=== PATIENT | male | born 1950 | race Caucasian/White ===

== ENCOUNTER 2016-11-21 08:57 | Outpatient (CLI) | payer MEDICARE, OTHER ==
--- NOTE | 2016-11-21 10:38 | CT Report ---
CT CHEST WITHOUT CONTRAST: 11/21/2016 CLINICAL INDICATION: Left lung cancer, history of resection. TECHNIQUE: Axial CT images of the chest were obtained without intravenous contrast. No previous CT is available for comparison. In accordance with CT protocol optimization, one or more of the following dose reduction techniques w ere utilized for this exam: automated exposure control, adjustment of mA and/or KV based on patient size, or use of iterative reconstructive technique. FINDINGS: The heart and great vessels demonstrate atherosclerotic calcifications. No hilar or media stinal lymphadenopathy is present. Extensive emphysema is present. There has been previous resectio n of a portion of the left upper lobe. There is a 9 x 5 mm soft tissue nodule along the left major f issure superiorly (axial image 15). No effusion is seen. Mild left pleural thickening is noted post eriorly. Limited evaluation of upper abdominal structures demonstrates normal adrenal glands. [place] us structures demonstrate degenerative changes. IMPRESSION: 1. A 9 X 5 MM NODULE AT THE SUPERIOR LEFT MAJOR FISSURE, WHICH MAY REPRESENT POSTOPERATIVE CHANGE OR RECURRENCE. COMPARISON WITH PREVIOUS EXAMS WOULD BE HELPFUL. OTHERWISE, CONSIDER PET/CT FOR FURTHE R EVALUATION. 2. EMPHYSEMA. JOB #: [id number] EXT JOB #:[id number]
== END 2016-11-21 08:58 | disposition home or self-care (01) ==
LOC: DI 08:57
PROVIDERS: ATTEND Physician Assistant
DX: C34.92 Malignant neoplasm of unspecified part of left bronchus or lung (principal); J43.9 Emphysema, unspecified
CPT/HCPCS: 71250

== ENCOUNTER 2017-07-09 10:50 | Outpatient (CLI) | payer MEDICARE, OTHER ==
--- NOTE | 2017-07-09 12:01 | CT Report ---
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 COMPARISON: 11/21/2016. TECHNIQUE: Axial CT images of the chest were obtained without intravenous contrast. FINDINGS: The heart and great vessels again demonstrate atherosclerotic calcifications. No hilar or mediastinal lymphadenopathy is present. Postoperative changes in the left upper lung have decreased. Extensive emphysema is again seen. A 4 mm nodule in the lateral right middle lobe is unchanged. No new pulmonary nodule or mass lesion is appreciated. No effusion or pneumothorax is present. Limited evaluation of the upper abdominal structures demonstrates normal adrenal glands. Osseous structures demonstrate degenerative changes. IMPRESSION: DECREASE IN CONSPICUITY OF POSTOPERATIVE CHANGES IN THE LEFT APEX. NO SIGNIFICANT INTERVAL CHANGE. In accordance with CT protocol optimization, one or more of the following dose reduction techniques were utilized for this exam: automated exposure control, adjustment of mA and/or KV based on patient size, or use of iterative reconstructive technique. TD: 07/09/2017 12:01
== END 2017-07-09 10:51 | disposition home or self-care (01) ==
LOC: DI 10:50
PROVIDERS: ATTEND Physician Assistant
DX: C34.92 Malignant neoplasm of unspecified part of left bronchus or lung (principal)
CPT/HCPCS: 71250

== ENCOUNTER 2018-01-12 10:35 | Outpatient (CLI) | payer MEDICARE, OTHER ==
--- NOTE | 2018-01-12 15:12 | CT Report ---
Reason: ADENOCARCINOMA OF LEFT LUNG Procedure Date: 01/12/2018 Accession Number: [id number] / [id number] Procedure: CT - Chest W/O CPT Code: FULL RESULT: EXAM: CT CHEST EXAM DATE: 01/12/2018 10:44 AM. CLINICAL HISTORY: ADENOCARCINOMA OF LEFT LUNG. COMPARISONS: CHEST W/O 07/09/2017 11:04 AM. TECHNIQUE: Routine helical CT imaging was performed through the chest. IV contrast: None. Reconstructions: Coronal and sagittal. In accordance with CT protocol optimization, one or more of the following dose reduction techniques were utilized for this exam: automated exposure control, adjustment of mA and/or KV based on patient size, or use of iterative reconstructive technique. FINDINGS: Lungs/Pleura: Patient has undergone partial right lung resection. There are left hilar and left anterior chest surgical sutures. There is some mild associated architectural distortion. There is no evidence of recurrent or new lung mass. The lungs demonstrate emphysema. No focal central airway abnormalities are seen. There is no evidence of acute infiltrate or effusion. No pneumothorax. Mediastinum: Heart size is within normal limits. There are coronary artery and aortic valve calcifications. There are no enlarged axillary, supraclavicular, mediastinal, or hilar lymph nodes. Bones: No significant abnormalities are seen. Visualized Abdomen: The visualized portions of the upper abdominal organs demonstrate no acute abnormalities. Other: None. IMPRESSION: 1. Status post partial left lung resection. There is no evidence of residual, new, or metastatic lung cancer. 2. No acute pulmonary process. 3. There is emphysema. 4. Normal heart size. There are aortic and coronary artery calcifications. RADIA
== END 2018-01-12 10:36 | disposition home or self-care (01) ==
LOC: DI 10:35
PROVIDERS: ATTEND Physician Assistant Surgical
DX: J43.9 Emphysema, unspecified (principal); C34.92 Malignant neoplasm of unspecified part of left bronchus or lung; Z90.2 Acquired absence of lung [part of]; I70.0 Atherosclerosis of aorta; I25.10 Atherosclerotic heart disease of native coronary artery without angina pectoris
CPT/HCPCS: 71250

== ENCOUNTER 2018-01-14 10:44 | Day surgery (SDC) | payer MEDICARE, OTHER ==
[2018-01-14] MEDS ORDERED: LACTATED RINGERS 1,000 ML IV ONE (11:13)
[2018-01-14] MEDS ORDERED: fentaNYL 250 MCG/5 ML VIAL IVP ONE (13:48)
[2018-01-14] MEDS ORDERED: MIDAZOLAM 2 MG/2 ML VIAL IVP ONE (13:48)
[2018-01-14 14:57] VITALS: BP 149/46
== END 2018-01-14 10:45 | disposition home or self-care (01) ==
LOC: SDS 10:44
PROVIDERS: ATTEND Surgery
PROC: 0DBN8ZZ Excision of Sigmoid Colon, Via Natural or Artificial Opening Endoscopic (ICD-10-PCS; principal; 2018-01-14 11:45)
DX: Z12.11 Encounter for screening for malignant neoplasm of colon (principal); Z85.038 Personal history of other malignant neoplasm of large intestine; Z86.010 Personal history of colon polyps; D12.5 Benign neoplasm of sigmoid colon; K64.8 Other hemorrhoids; I10 Essential (primary) hypertension; J43.9 Emphysema, unspecified; Z90.49 Acquired absence of other specified parts of digestive tract; Z79.899 Other long term (current) drug therapy; Z79.82 Long term (current) use of aspirin; Z87.891 Personal history of nicotine dependence
CPT/HCPCS: 45385; J3010; J7120

== ENCOUNTER 2018-01-18 09:14 | Emergency (ER) | payer MEDICARE, OTHER ==
[2018-01-18 09:44] LABS: HGB - HEMOGLOBIN 12.8 g/dL (14.0-18.0); MEAN CORPUSCULAR HEMOGLOBIN 32.1 pg (27.0-31.0); MEAN CORPUSCULAR HGB CONC 34.4 g/dL (32.0-36.0); MEAN CORPUSCULAR VOLUME 93.5 fL (80.0-94.0); MEAN PLATELET VOLUME 8.4 fL (7.4-11.4); RED BLOOD COUNT 3.97 10^6/uL (4.70-6.10); RED CELL DISTRIBUTION WIDTH 12.8 % (12.0-15.0); WHITE BLOOD COUNT 6.6 x10^3/uL (4.8-10.8)
[2018-01-18 09:52] LABS: PT - PROTHROMBIN TIME 11.7 secs (9.9-12.6)
[2018-01-18 10:00] LABS: ALBUMIN 4.2 g/dL (3.2-5.5); ALBUMIN/GLOBULIN RATIO 1.3 (1.0-2.2); BILIRUBIN,TOTAL 1.1 mg/dL (0.2-1.0); CALCIUM 9.2 mg/dL (8.5-10.3); CREATININE 0.9 mg/dL (0.6-1.2); TOTAL PROTEIN 7.5 g/dL (6.7-8.2)
[2018-01-18] MEDS ORDERED: SODIUM CHLORIDE 0.9% 1,000 ML IV ONE (10:15)
[2018-01-18 13:48] VITALS: BP 150/74
--- NOTE | 2018-01-18 14:01 | ED Physician Documentation ---
PD HPI GI BLEED - Stated complaint Stated Complaint: MALE /POST OP COMPLICATION - Chief complaint Chief Complaint: Abd Pain - History obtained from History obtained from: Patient - History of Present Illness Timing - onset: How many days ago (2) Timing - details: Still present Associated symptoms: BRBPR Recently seen: Surgery (Underwent colonoscopy 4 days ago, with one polypectomy.) - Additional information Additional information: The patient is a 67-year-old male who presents with bright red blood per rectum. He first noticed it 2 days ago, then had less bleeding yesterday. This morning he had another "gush of blood." He is 4 days status post colonoscopy during which one polyp was resected. He is status post partial colectomy in 2015 for cancer, stating that 14 inches of colon was removed. He takes one full aspirin daily. He denies abdominal pain, nausea, vomiting, or fever. He does report slight lightheadedness this morning. He denies history of similar symptoms in the past. Review of Systems Constitutional: denies: Fever, Fatigue Nose: denies: Congestion Throat: denies: Sore throat Cardiac: denies: Chest pain / pressure Respiratory: denies: Dyspnea, Cough GI: reports: Bloody / black stool. denies: Abdominal Pain, Nausea, Vomiting : denies: Dysuria Skin: denies: Rash Musculoskeletal: denies: Back pain Neurologic: denies: Focal weakness, Numbness, Headache PD PAST MEDICAL HISTORY - Past Medical History Past Medical History: Yes Cardiovascular: Hypertension Respiratory: Other Endocrine/Autoimmune: None GI: Colon polyps : None HEENT: None Psych: None Musculoskeletal: None Derm: None - Past Surgical History General: Colonoscopy, EGD Ortho: Other - Present Medications Home Medications: Ambulatory Orders Medication Instructions Recorded Confirmed Aspirin 81 tab PO DAILY 01/11/18 01/11/18 Atorvastatin [Lipitor] 20 tab PO DAILY 01/11/18 01/14/18 Fexofenadine HCl [Dea Allergy] 180 tab PO DAILY 01/11/18 01/14/18 Lisinopril 10 tab PO DAILY 01/11/18 01/14/18 Multivitamin [Multiple Vitamins] 1 tab PO DAILY 01/11/18 01/14/18 Omeprazole [PriLOSEC] 20 tab PO DAILY 01/11/18 01/14/18 - Allergies Allergies/Adverse Reactions: Allergies Allergy/AdvReac Type Severity Reaction Status Date / Time No Known Drug Allergies Allergy Verified 01/18/18 09:22 - Social History Does the pt smoke?: No Smoking Status: Former smoker Does the pt drink ETOH?: Yes Does the pt have substance abuse?: No - Immunizations Immunizations are current?: Yes PD ED PE NORMAL - Vitals Vital signs reviewed: Yes (hypertensive) - General General: Alert and oriented X 3, Well developed/nourished - HEENT HEENT: Atraumatic, Moist mucous membranes, Pharynx benign - Neck Neck: No adenopathy, No JVD - Cardiac Cardiac: RRR - Respiratory Respiratory: No respiratory distress, Clear bilaterally - Abdomen Abdomen: Normal bowel sounds, Soft, Non tender - Rectal Rectal: Other (Rectal exam reveals external hemorrhoids, tight anal sphincter, and bright red blood on fingertip, which was not able to be fully inserted into the rectum due to discomfort with partial insertion.) - Back Back: No CVA TTP - Derm Derm: No rash - Extremities Extremities: No edema, No calf tenderness / cord - Neuro Neuro: Alert and oriented X 3, No motor deficit, Normal speech Results - Vitals Vitals: Oxygen O2 Source Room air - Labs Labs: Laboratory Tests 01/18/18 01/18/18 01/18/18 09:29 09:29 09:29 WBC 6.6 RBC 3.97 L Hgb 12.8 L Hct 37.1 L MCV 93.5 MCH 32.1 H MCHC 34.4 RDW 12.8 Plt Count 153 MPV 8.4 PT 11.7 INR 1.0 APTT 26.8 Sodium Potassium Chloride Carbon Dioxide Anion Gap BUN Creatinine Estimated GFR (MDRD) Glucose Calcium Total Bilirubin AST ALT Alkaline Phosphatase Total Protein Albumin Globulin Albumin/Globulin Ratio Lipase Blood Type O POSITIVE Antibody Screen NEGATIVE 01/18/18 09:29 WBC RBC Hgb Hct MCV MCH MCHC RDW Plt Count MPV PT INR APTT Sodium 134 L Potassium 4.1 Chloride 101 Carbon Dioxide 23 Anion Gap 10.0 BUN 11 Creatinine 0.9 Estimated GFR (MDRD) 84 L Glucose 121 H Calcium 9.2 Total Bilirubin 1.1 H AST 65 H ALT 52 Alkaline Phosphatase 81 Total Protein 7.5 Albumin 4.2 Globulin 3.3 Albumin/Globulin Ratio 1.3 Lipase 36 Blood Type Antibody Screen PD MEDICAL DECISION MAKING - ED course Complexity details: reviewed old records, reviewed results, re-evaluated patient, considered differential, d/w patient, d/w family, d/w software security consultant ED course: The patient's presentation is most consistent with rectal bleeding, likely from a small tear at the anal sphincter associated with colonoscopy 4 days ago. I do not think this represents hemorrhage from the polypectomy site. CBC reveals adequate hemoglobin and hematocrit of 12.8 and 37.1. The patient had a few drops of blood in the commode while in the emergency department. I discussed his condition with the general surgeon, Dr. Archer, who advises that the patient's tight anal sphincter was problematic during the colonoscopy, and that a superficial tear at the anal sphincter is quite likely. I discussed with the patient and his the likely etiology of the bleeding, advised discontinuing aspirin for the next 3 days, and discussed potentially worrisome signs or symptoms that should prompt reevaluation in the emergency department. - Sepsis Event Vital Signs: Oxygen O2 Source Room air Departure - Departure Disposition: 01 Home, Self Care Clinical Impression: Rectal bleeding, S/P colonoscopy Condition: Stable Instructions: ED Hematochezia Stable Follow-Up: Kar Archer MD [Provider Admit Priv/Credential] - ITA LAMBERT MD [Primary Care Provider] - Comments: Drink plenty of fluids. Avoid taking aspirin for Follow up with your primary physician and with your general surgeon as scheduled. Return to the emergency department if you develop increasing rectal bleeding, lightheadedness, abdominal pain, or otherwise worsening symptoms. Discharge Date/Time: 01/18/18 14:12
== END 2018-01-18 14:12 | disposition home or self-care (01) ==
LOC: ED 09:14
DX: K91.840 Postprocedural hemorrhage of a digestive system organ or structure following a digestive system procedure (principal); I10 Essential (primary) hypertension; Z87.891 Personal history of nicotine dependence; Z79.82 Long term (current) use of aspirin
CPT/HCPCS: 36415; 80053; 83690; 85027; 85610; 85730; 86850; 86900; 86901; 96360; 99283

== ENCOUNTER 2020-06-30 15:04 | Outpatient (CLI) | payer MEDICARE, OTHER ==
--- NOTE | 2020-06-30 17:33 | CT Report ---
PROCEDURE: CHEST WO INDICATIONS: LEFT LUNG CA TECHNIQUE: Noncontrast 5 mm thick sections acquired from the pulmonary apices to the posterior costophrenic angl es. 7 mm thick coronal and sagittal MIP reformats were then acquired. For radiation dose reduction, the following was used: automated exposure control, adjustment of mA and/or kV according to patient size. COMPARISON: CT chest 01/12/2018, 11/21/2016. FINDINGS: Image quality: Excellent. Lungs and pleura: Partial left upper lobe lobectomy is similar the prior CTs. Right middle lobe pulm onary nodule measuring 0.4 cm, (4/240), unchanged since at least 11/21/2016. No mass. Moderate emphysem atous change. Bibasal atelectasis. No pleural effusions or pneumothorax. Central and peripheral air ways are patent and normal in caliber. Mediastinum: Heart size is normal. Coronary artery calcifications. No pericardial effusion. No medi astinal adenopathy by size criteria. Thoracic aorta and central pulmonary arteries are normal in siz e. Extensive calcified plaque at the aortic arch. Esophagus is normal in caliber. No hiatal hernia. Bones and chest wall: No suspicious bony lesions. No vertebral body compression fractures. Similar Schmorl's nodules. No axillary or supraclavicular adenopathy by size criteria. Thyroid is unremarkab le. Abdomen: Hepatic flexure colonic anastomosis. Circumferential calcified abdominal aortic plaque. Visu alized upper abdominal solid organs and bowel loops appear normal in the absence of contrast. IMPRESSION: 1. No recurrent lung mass or significant pulmonary nodules. Stable appearance of the left upper lobe partial lobectomy. 2. No acute airspace opacity. Reviewed by: John Healy MD on 06/30/2020 5:32 PM PST Approved by: John Healy MD on 06/30/2020 5:32 PM PST Station ID: [id number]
== END 2020-06-30 15:05 | disposition home or self-care (01) ==
LOC: DI 15:04
PROVIDERS: ATTEND Nurse Practitioner
DX: C34.92 Malignant neoplasm of unspecified part of left bronchus or lung (principal); Z08 Encounter for follow-up examination after completed treatment for malignant neoplasm; Z85.118 Personal history of other malignant neoplasm of bronchus and lung

== ENCOUNTER 2021-06-24 10:33 | Outpatient (CLI) | payer MEDICARE, OTHER ==
--- NOTE | 2021-06-24 14:03 | CT Report ---
PROCEDURE: CHEST WO INDICATIONS: ADENOCARCINOMA LEFT LUNG TECHNIQUE: Noncontrast 1mm axial images were acquired from the pulmonary apices to the posterior costophrenic an gles. Axial 5 mm soft tissue kernel reconstructions were performed as well as 8 mm axial MIP and cor onal and sagittal 5 mm reformations. For radiation dose reduction, the following was used: automate d exposure control, adjustment of mA and/or kV according to patient size. COMPARISON: CT chest 06/30/2020, 11/21/2016. FINDINGS: Image quality: Excellent. Lungs and pleura: Moderate emphysematous change. The left upper lobe partial lobectomy. There is sim ilar scarring and postoperative change at the major fissure. There is mild bibasal atelectasis. Right middle lobe pulmonary nodule measuring 0.4 cm, (4/230), unchanged since 2017. No acute air space opa cities. No pleural effusions or pneumothorax. Central and peripheral airways are patent and normal in caliber. Mediastinum: Heart size is normal. Coronary artery calcifications. No pericardial effusion. No medi astinal adenopathy by size criteria. Thoracic aorta and central pulmonary arteries are normal in siz e. Circumferential calcified atherosclerotic plaque. Esophagus is normal in caliber. No hiatal herni a. Bones and chest wall: No suspicious bony lesions. Suspect prior left seventh rib fracture. No verteb ral body compression fractures. No axillary or supraclavicular adenopathy by size criteria. The thy roid is normal in size and there are no incidental findings. Abdomen: Visualized upper abdominal solid organs and bowel loops appear normal in the absence of con trast. IMPRESSION: 1. No recurrent lung mass. Stable appearance of the left upper lobe partial lobectomy. 2. No significant pulmonary nodules. 3. No acute airspace opacity. Reviewed by: John Healy MD on 06/24/2021 2:02 PM PST Approved by: John Healy MD on 06/24/2021 2:02 PM PST Station ID: [id number]
== END 2021-06-24 10:34 | disposition home or self-care (01) ==
LOC: DI 10:33
PROVIDERS: ATTEND Surgery
DX: C34.92 Malignant neoplasm of unspecified part of left bronchus or lung (principal); Z90.2 Acquired absence of lung [part of]

== ENCOUNTER 2022-02-22 09:46 | Emergency (ER) | payer MEDICARE, OTHER ==
[2022-02-22 10:00] VITALS: BP 181/91
--- NOTE | 2022-02-22 11:28 | ED Physician Documentation ---
History of Present Illness - Stated complaint Stated Complaint: LT LEG PX - Chief complaint Chief Complaint: Ext Problem - Additonal information Additional information: 71-year-old male presents emergency department for evaluation of 4 days left lower back pain with radiation down to the toes and the leg. He feels a burning sensation in the leg and a tightness in the thigh. There is no swelling. Has had no fevers. No saddle anesthesia. No loss of bowel or bladder function. He does have a history of lung cancer. He did have an MRI of his lumbar spine due to hip pain about 1 month ago that showed some degenerative disc disease between L3 and L4. Patient's had no falls and no fevers. Patient has taken Tylenol and ibuprofen without relief of the symptoms. He reports the pain is worse especially when laying flat. He has had difficulty sleeping Review of Systems Constitutional: denies: Fever, Chills Nose: reports: Reviewed and negative Cardiac: reports: Reviewed and negative Respiratory: reports: Reviewed and negative GI: reports: Reviewed and negative Musculoskeletal: reports: Back pain, Extremity pain Neurologic: reports: Reviewed and negative Psychiatric: reports: Reviewed and negative PD PAST MEDICAL HISTORY - Past Medical History Cardiovascular: Hypertension Respiratory: Other Endocrine/Autoimmune: None GI: Colon polyps : None HEENT: None Psych: None Musculoskeletal: None Derm: None - Past Surgical History General: Colonoscopy, EGD Ortho: Other - Present Medications Home Medications: Ambulatory Orders Medication Instructions Recorded Confirmed Aspirin 81 tab PO DAILY 01/11/18 01/11/18 Atorvastatin [Lipitor] 20 tab PO DAILY 01/11/18 01/14/18 Fexofenadine HCl [Dea Allergy] 180 tab PO DAILY 01/11/18 01/14/18 Multivitamin [Multiple Vitamins] 1 tab PO DAILY 01/11/18 01/14/18 Omeprazole [PriLOSEC] 20 tab PO DAILY 01/11/18 01/14/18 lisinopriL [Lisinopril] 10 tab PO DAILY 01/11/18 01/14/18 HYDROcod/ACETAM 5/325 [[facility] 5/325] 1 - 2 tablet PO Q6H PRN #10 tablet 02/22/22 methylPREDNISolone [Medrol Dose 1 each PO .PACKAGEINSTRUCTIONS 6 02/22/22 Pack] Days #1 each - Allergies Allergies/Adverse Reactions: Allergies Allergy/AdvReac Type Severity Reaction Status Date / Time No Known Drug Allergies Allergy Verified 01/18/18 09:22 - Social History Does the pt smoke?: No Smoking Status: Former smoker Does the pt drink ETOH?: Yes Does the pt have substance abuse?: No - Immunizations Immunizations are current?: Yes PD ED PE EXPANDED - General General: Alert, No acute distress, Well developed/nourished - Back Back: Straight leg raise + L. No: Vertebral tenderness (No vertebral tenderness elicited with palpation of the lower thoracic and lumbar spine. Some mild tenderness near the SI joint. Patient has a positive straight leg exam on the left. Negative on the right. Motor strength is preserved 5 of 5. Some paresthesias of the lateral thigh), Soft tissue tenderness Results - Vitals Vitals: Vital Signs - 24 hr 02/22/22 09:55 Temperature 36.6 C Heart Rate 94 Respiratory 16 Rate Blood Pressure 181/91 H O2 Saturation 99 Oxygen O2 Source Room air PD MEDICAL DECISION MAKING - ED course Complexity details: reviewed old records, considered differential, d/w patient, d/w family ED course: 71-year-old male presents emergency department for evaluation of 4 days left low back pain with radiation to the lower leg. No saddle anesthesia loss of bowel or bladder function. He does have a history of cancer. He did have a lumbar MRI completed in early December for right hip pain. At that time it showed some L3-4 degenerative disc disease. Though he does have a history of cancer the presentation of his symptoms is very suggestive of acute sciatica. In addition a rather recent MRI does not show anything to suggest lytic lesions of the spine. As he is trialed conservative therapy with Tylenol and ibuprofen at home without relief I will start him on a course of methylprednisolone. A limited prescription of hydrocodone is also sent to the preferred pharmacy. Patient is encouraged to follow closely with his primary care doctor. He has enjoyed and benefited from physical therapy in the past and I think he would benefit again from another course of physical therapy for what I believed to be sciatica. We did have discharged the patient in stable condition and emergent return precautions for worsening symptoms were discussed. I am prescribing a short course of short-acting opioid pain medication for this patient. I have reviewed the patients IT ADMINISTRATOR and no concerning findings were noted. I have discussed that the opioids are for short term therapy only, and will not be refilled from the ED. Departure - Departure Disposition: Home, Self Care Clinical Impression: Left-sided low back pain with sciatica Qualifiers: Chronicity: acute Sciatica laterality: sciatica of left side Qualified Code(s): M54.42 - Lumbago with sciatica, left side Condition: Stable Record reviewed to determine appropriate education?: Yes Instructions: ED Sciatica Prescriptions: methylPREDNISolone [Medrol Dose Pack] 1 each PO .PACKAGEINSTRUCTIONS 6 Days #1 each HYDROcod/ACETAM 5/325 [[facility] 5/325] 1 - 2 tablet PO Q6H PRN #10 tablet PRN Reason: Pain Comments: Alok came to the emergency department because you have had 4 to 5 days of left- sided low back pain that radiates down to your toes. As we discussed at the bedside your history and exam is most suggestive of acute sciatica. This is inflammation of the large nerve that runs down the leg. Because the ibuprofen and Tylenol at home have not helped I would like to start you on a course of steroids. [place] Medrol [place] I am also sending a very limited prescription for hydrocodone to be used for severe pain only. You can continue to take the Tylenol but while you are on the steroids do not take the ibuprofen. Please follow close with your primary care doctor. I think you would benefit again from a referral to physical therapy as it seemed to help your hip a great deal.
== END 2022-02-22 12:24 | disposition home or self-care (01) ==
LOC: ED 09:46
DX: M54.42 Lumbago with sciatica, left side (principal); M51.36 Other intervertebral disc degeneration, lumbar region; I10 Essential (primary) hypertension; Z87.891 Personal history of nicotine dependence
CPT/HCPCS: 99282

== ENCOUNTER 2022-03-26 12:14 | Emergency (ER) | payer MEDICARE, OTHER ==
[2022-03-26 13:15] VITALS: BP 176/83
--- NOTE | 2022-03-26 13:54 | XRAY Report ---
PROCEDURE: Finger(s) LT INDICATIONS: Trauma TECHNIQUE: PA hand, 3 views of the ring finger acquired. COMPARISON: None. FINDINGS: Bones: There is a minimally displaced oblique fracture of the fourth proximal phalangeal shaft. No santos spicious bony lesions. Soft tissues: No suspicious soft tissue calcifications. IMPRESSION: Minimally displaced oblique fracture of the fourth proximal phalangeal shaft. Reviewed by: Clay Gonzales MD on 03/26/2022 1:53 PM PST Approved by: Clay Gonzales MD on 03/26/2022 1:53 PM PST Station ID: [id number]
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
== END 2022-03-26 15:18 | disposition home or self-care (01) ==
LOC: ED 12:14
DX: S62.615A Displaced fracture of proximal phalanx of left ring finger, initial encounter for closed fracture (principal); W18.30XA Fall on same level, unspecified, initial encounter; Z87.891 Personal history of nicotine dependence
CPT/HCPCS: 99281; 99283

== ENCOUNTER → 2022-03-26 | Outpatient (CLI) | payer MEDICARE, OTHER | END | disposition short-term general hospital (02) | LOC: EMS 19:08 | DX: S49.92XA Unspecified injury of left shoulder and upper arm, initial encounter (principal); W17.89XA Other fall from one level to another, initial encounter; Y92.008 Other place in unspecified non-institutional (private) residence as the place of occurrence of the external cause | CPT/HCPCS: A0425; A0429 ==

== ENCOUNTER 2023-02-22 10:50 | Outpatient (CLI) | payer MEDICARE, OTHER | END 2023-02-22 10:51 | disposition EMS.NT | LOC: EMS 10:50 | DX: S69.92XA Unspecified injury of left wrist, hand and finger(s), initial encounter (principal); Y04.2XXA Assault by strike against or bumped into by another person, initial encounter; Y04.1XXA Assault by human bite, initial encounter; Y92.019 Unspecified place in single-family (private) house as the place of occurrence of the external cause ==

== ENCOUNTER 2023-02-22 12:53 | Emergency (ER) | payer MEDICARE, OTHER ==
[2023-02-22] MEDS ORDERED: TETANUS/DIPHTHERIA/PERTUSSIS 0.5 ML SYRINGE IM ONE (13:02)
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
--- NOTE | 2023-02-22 13:50 | XRAY Report ---
PROCEDURE: Hand 3 View LT INDICATIONS: hand inj TECHNIQUE: 3 views of the hand(s) acquired. COMPARISON: None. FINDINGS: Bones: Acute oblique fracture through distal shaft of third proximal phalanx is seen with medial and dorsal displacement at fracture site. No other fracture or dislocation is seen. 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 No suspicious bony lesions. Soft tissues: No suspicious soft tissue calcifications or masses. IMPRESSION: Acute displaced fracture involving fourth proximal phalangeal shaft as above. Reviewed by: Johnny Yuan MD on 02/22/2023 1:49 PM PDT Approved by: Johnny Yuan MD on 02/22/2023 1:49 PM PDT Station ID: [id number]
[2023-02-22 14:06] VITALS: BP 189/90; O2SAT 98
== END 2023-02-22 13:58 | disposition home or self-care (01) ==
LOC: ED 12:53
DX: S62.615A Displaced fracture of proximal phalanx of left ring finger, initial encounter for closed fracture (principal); Y29.XXXA Contact with blunt object, undetermined intent, initial encounter; I10 Essential (primary) hypertension; Z79.82 Long term (current) use of aspirin; Z79.899 Other long term (current) drug therapy; Z87.891 Personal history of nicotine dependence; Z23 Encounter for immunization
CPT/HCPCS: 26755; 90471; 99283

== ENCOUNTER 2023-02-27 08:00 | Outpatient (CLI) | payer MEDICARE, OTHER ==
--- NOTE | 2023-02-27 20:19 | XRAY Report ---
PROCEDURE: Finger(s) LT INDICATIONS: LEFT FINGER FRACTURE TECHNIQUE: AP hand, 3 views of the fourth finger(s) acquired. COMPARISON: Left hand radiograph on February 22, 2023. Left finger radiograph on March 26, 2022. FINDINGS: Bones: Oblique, impacted fracture of the fourth proximal phalanx with intra-articular extension into the ulnar aspect of the PIP joint. There is half shaft width volar and radial displacement of the di stal fracture fragment which appears similar to the prior exam. No new fracture. Mild degenerative ch anges throughout the hand. No suspicious bony lesions. Soft tissues: No suspicious soft tissue calcifications or masses. Marked soft tissue swelling of t he fourth digit. No radiopaque foreign body. IMPRESSION: Oblique, impacted, displaced fracture of the fourth proximal phalanx with intra-articular extension i nto the PIP joint appears similar to the prior exam. Stable alignment. Reviewed by: Tye Granados MD on 02/27/2023 8:18 PM PST Approved by: Tye Granados MD on 02/27/2023 8:18 PM PST Station ID: [id number]
== END 2023-02-27 23:59 | disposition home or self-care (01) ==
LOC: DI.WOS 08:00
PROVIDERS: ATTEND Orthopaedic Surgery
DX: S62.615A Displaced fracture of proximal phalanx of left ring finger, initial encounter for closed fracture (principal)

== ENCOUNTER 2023-02-28 09:05 | Day surgery (SDC) | payer MEDICARE, OTHER ==
[~2023-02-28 09:05] MED LIST: ACETAMINOPHEN 500 MG TABLET PO ONE; CELECOXIB 100 MG CAPSULE PO ONE; ceFAZolin 2 GM VIAL ONE
[2023-02-28] MEDS ORDERED: LACTATED RINGERS 1,000 ML IV ONE ×2 (09:35→12:19)
--- NOTE | 2023-02-28 10:25 | ANESTHESIA ---
Pre-Anesthesia VS, & Labs - Diagnosis L 4t finger fracture - Procedure perc pinning, closed reduction L 4th finger Vital Signs: Temp Pulse Resp BP Pulse Ox O2 Flow Rate 36.5 C 93 16 165/91 H 93 02/28/23 09:35 02/28/23 09:35 02/28/23 09:35 02/28/23 09:35 02/28/23 09:35 Height: 5 ft 6 in Weight (kg): 78.7 kg Body Mass Index: 28.0 BMI Classification: Overweight - NPO >8 hours Home Medications and Allergies Home Medications: Ambulatory Orders Acetaminophen [Tylenol] 975 mg PO Q6H PRN 02/27/23 Ibuprofen [Motrin] 600 mg PO Q6H PRN 02/27/23 Vit A/Vit C/Vit E/Zinc/Copper [Preservision Areds Softgel] 1 each PO BID 02/27/23 Atorvastatin [Lipitor] 20 tab PO QPM 01/11/18 Omeprazole [PriLOSEC] 20 tab PO DAILY 01/11/18 lisinopriL [Lisinopril] 20 tab PO DAILY 01/11/18 Acetaminophen [Tylenol] 975 mg PO Q6H PRN 02/27/23 Ibuprofen [Motrin] 600 mg PO Q6H PRN 02/27/23 Vit A/Vit C/Vit E/Zinc/Copper [Preservision Areds Softgel] 1 each PO BID 02/27/23 Allergies/Adverse Reactions: Allergies Allergy/AdvReac Type Severity Reaction Status Date / Time No Known Drug Allergies Allergy Verified 02/28/23 09:44 Anes History & Medical History - Anesthetic History Anesthesia Complications: reports: No previous complications Family history of Anesthesia Complications: Denies Family history of Malignant Hyperthermia: Denies - Medical History Cardiovascular: reports: Hypertension, High cholesterol, Other Pulmonary: reports: Other (KAVON removed) Gastrointestinal: reports: GERD, Colon polyps, Other Urinary: reports: None Musculoskeletal: reports: None Endocrine/Autoimmune: reports: None Skin: reports: None Smoking Status: Former smoker Psychosocial: reports: Alcohol History of Cancer?: Yes - Surgical History General: reports: Bowel surgery, Colonoscopy, EGD Cardiothoracic: reports: Lobectomy, Other Orthopedic: reports: Other Exam General: Alert, Oriented x3, Cooperative Dental: Dentures full Upper, Dentures full Lower, Other (edentulous) Mouth Openin Fingerbreadth Neck Mobility: Normal Mallampati classification: I Thyromental Distance: 4-6 cm Respiratory: Lungs clear Cardiovascular: Regular rate Plan Anesthesia Type: General Consent for Procedure(s) Verified and Reviewed: Yes Code Status: Attempt Resuscitation ASA classification: 3-Severe systemic disease Is this case an emergency?: No
[2023-02-28] MEDS ORDERED: BUPIVACAINE 0.5% PF 10 ML VIAL ONE (10:30)
[2023-02-28] MEDS ORDERED: PROPOFOL 500 MG/50 ML 500 MG/50 ML VIAL ONE (10:41)
[2023-02-28] MEDS ORDERED: fentaNYL 100 MCG/2 ML VIAL ONE (10:41)
[2023-02-28] MEDS ORDERED: LIDOCAINE-MPF 1% 30 ML VIAL ONE (10:42)
[2023-02-28] MEDS ORDERED: KETAMINE 200 MG/20 ML VIAL ONE (11:24)
[2023-02-28] MEDS ORDERED: PROPOFOL 200 MG/20 ML VIAL IVP ONE ×2 (11:35→11:56)
[2023-02-28] MEDS ORDERED: BUPIVACAINE 0.5% PF 10 ML VIAL IM ONE ×2 (11:35)
[2023-02-28] MEDS ORDERED: LIDOCAINE 1% 50 ML MDV IM ONE ×2 (11:35)
[2023-02-28] MEDS ORDERED: MIDAZOLAM 2 MG/2 ML VIAL ONE (11:36)
[2023-02-28] MEDS ORDERED: oxyCODONE 5 MG TABLET PO PRN (12:16)
[2023-02-28] MEDS ORDERED: CELECOXIB 100 MG CAPSULE PO PRN (12:16)
[2023-02-28] MEDS ORDERED: ACETAMINOPHEN 500 MG TABLET PO PRN (12:16)
[2023-02-28] MEDS ORDERED: ONDANSETRON 4 MG/2 ML VIAL IVP PRN (12:16)
--- NOTE | 2023-02-28 12:18 | OPERATIVE REPORT ---
Operative Report - General Procedure Date: 02/28/23 Planned Procedure: Closed reduction percutaneous pinning proximal phalanx left fourth finger Pre-Op Diagnosis: Displaced proximal phalanx shaft fracture left fourth finger with history o Procedure Performed: Closed reduction, percutaneous K wire fixation proximal phalanx left fourth finger Post Op Diagnosis: Same as preoperative diagnosis - Procedure Note Primary Surgeon: Samuel Knott MD Secondary Surgeon: Papo Jon MD; Suzanne VANEGAS Anesthesia Provider: Odalis Granado CRNA Anesthesia Technique: Local, Moderate sedation Estimated Blood Loss (mL): 2 Indications: This is a 72-year-old man with a history of a fall and isolated injury to his ring finger. He had pain and deformity after the fall that occurred from a standing height, ground-level fall. He has had previous fractures and deformity to his ring finger. He had a crossover deformity on exam, swelling and tenderness to the proximal phalanx. The ring finger was crossing over the fifth finger. His x-rays showed a displaced short oblique fracture involving the distal shaft of the fourth finger. An informed consent was obtained for closed reduction, percutaneous K wire fixation of the ring finger proximal phalanx [facility] ture Findings: Closed, displaced proximal phalanx shaft fracture left fourth finger with previous history of deformity on past x-rays and clinical deformity of adjacent fingers, swan-neck Complications: None - Other Other Information/Narrative: The patient was brought to the operating room table and placed in the supine position with the left arm on an arm extension table. The left upper extremity was prepped and draped in sterile manner in the usual fashion. The C-arm image intensifier was utilized intermittently during fracture reduction and insertion of K wires, biplanar imaging was achieved. A timeout procedure was performed by the entire operating room team and all were in agreement. Longitudinal traction was performed with countertraction through the hand. Traction was applied using a towel clamp through the middle phalanx. There was not much mobility to the fracture site in terms of being able to gain length or correct angulation on the lateral view. The angulation on the AP view could be improved. An attempt to squeeze the fracture on the AP view into better alignment with a towel clamp was performed. This was in conjunction with distal traction. 0.045 K wire was inserted from the distal end of the proximal phalanx on the ulnar side and run through the distal fragment into the proximal. There is still offset at the fracture site on both AP and lateral views but the fracture seems to Have better stability and alignment. A second K wire was inserted parallel to the first and the third K wire was inserted antegrade from the ulnar aspect of the proximal phalanx. This allowed for 3 K wire fixation, 1 inserted proximally and 2 distally. There is no clinical deformity in terms of the crossover deformity that was present. The fractures seem somewhat stiff, presumably from previous fractures that he is encountered to the ring finger. The K wires were cut external to the skin and capped with sterile ball. A short arm volar fiberglass padded splint was applied, blocking metacarpal phalangeal joint motion but allowing proximal and distal interphalangeal joint motion. He tolerated the procedure well. A physician statistical assistant was medically necessary to help with prepping and draping, positioning, protection of vital structures, assistance during the procedure including wound closure, dressing and/or splinting.
[2023-02-28 12:26] VITALS: O2SAT 100
--- NOTE | 2023-02-28 12:34 | ANESTHESIA POST OP EVALUATION ---
Anesthesia Post Eval - Post Anesthesia Eval Vitals: Last Vital Signs Temp 36.1 C L 02/28/23 12:22 Pulse 91 02/28/23 12:28 Resp 14 02/28/23 12:28 BP 182/96 H 02/28/23 12:28 Pulse Ox 100 02/28/23 12:28 O2 Flow Rate CV Function Including HR & BP: Stable Pain Control: Satisfactory Nausea & Vomiting: Negative Mental Status: Baseline Respiratory Status: Airway Patent Hydration Status: Satisfactory Anesthesia Complications: None
[2023-02-28 12:45] VITALS: BP 162/90
[2023-02-28] MEDS ORDERED: oxyCODONE 5 MG TABLET ONE (12:45)
--- NOTE | 2023-03-01 16:08 | XRAY Report ---
PROCEDURE: OR C-Arm Procedure INDICATIONS: DISPLACED FRACTURE LEFT 4TH PROXIMAL PHALANGEAL FI FLUORO TIME: 0:48 MIN TECHNIQUE: 2 intraoperative images were acquired. COMPARISON: X-ray finger 02/27/2023 FINDINGS: Intraoperative images demonstrate fixation of the fourth proximal phalanx. There is relatively good a natomic alignment. Hardware is intact. IMPRESSION: Fourth digit ORIF. Reviewed by: Diamond Norris MD on 03/01/2023 4:07 PM PST Approved by: Diamond Norris MD on 03/01/2023 4:07 PM [facility] Station ID: [id number]
== END 2023-02-28 09:06 | disposition home or self-care (01) ==
LOC: SDS 09:05
PROVIDERS: ATTEND Orthopaedic Surgery
DX: S62.615A Displaced fracture of proximal phalanx of left ring finger, initial encounter for closed fracture (principal); I10 Essential (primary) hypertension; J43.9 Emphysema, unspecified; Z87.891 Personal history of nicotine dependence
CPT/HCPCS: 26727; A9270; J3490; J7120

== ENCOUNTER 2023-04-03 08:00 | Outpatient (CLI) | payer MEDICARE, OTHER ==
--- NOTE | 2023-04-03 21:13 | XRAY Report ---
PROCEDURE: Finger(s) RT INDICATIONS: RIGHT 4TH FINGER FRACTURE TECHNIQUE: 3 views of the fourth finger COMPARISON: 02/27/2023 FINDINGS: Bones: Oblique fracture through the fourth proximal phalanx is transfixed by 2 K wires. There is impr jj alignment of the fracture fragments, however, persistent medial displacement of the distal fract ure fragment noted with foreshortening Soft tissues: No suspicious soft tissue calcifications. IMPRESSION: Displaced oblique fourth proximal phalangeal fracture with external fixation Reviewed by: Ramez Chandra MD on 04/03/2023 8:11 PM [facility] Approved by: Ramez Chandra MD on 04/03/2023 8:11 PM [facility] Station ID: [id number]
== END 2023-04-03 23:59 | disposition home or self-care (01) ==
LOC: DI.WOS 08:00
PROVIDERS: ATTEND Orthopaedic Surgery
DX: S62.614D Displaced fracture of proximal phalanx of right ring finger, subsequent encounter for fracture with routine healing (principal)

== ENCOUNTER 2023-05-08 08:00 | Outpatient (CLI) | payer MEDICARE, OTHER ==
--- NOTE | 2023-05-08 17:50 | XRAY Report ---
PROCEDURE: Finger(s) LT INDICATIONS: LEFT 4TH FINGER FRACTURE TECHNIQUE: AP hand, 2 views of the left fourth finger(s) acquired. COMPARISON: None. FINDINGS: Bones: Displaced proximal left fourth phalangeal fracture is redemonstrated. When compared with the study dated 04/03/2023, the fracture fragments are in similar anatomic alignment. There is likely raman y early callus now visualized. Soft tissues: No suspicious soft tissue calcifications or masses. IMPRESSION: Stable displaced fourth proximal phalangeal fracture with findings suggesting early callus. Reviewed by: Nel Yates MD on 05/08/2023 5:49 PM PST Approved by: eNl Yates MD on 05/08/2023 5:49 PM [facility] Station ID: [id number]
== END 2023-05-08 23:59 | disposition home or self-care (01) ==
LOC: DI.WOS 08:00
PROVIDERS: ATTEND Orthopaedic Surgery
DX: S62.615A Displaced fracture of proximal phalanx of left ring finger, initial encounter for closed fracture (principal); S62.615D Displaced fracture of proximal phalanx of left ring finger, subsequent encounter for fracture with routine healing

== ENCOUNTER 2025-01-27 07:08 | Observation (INO) ==
[2025-01-27 07:58] LABS: HCT - HEMATOCRIT 40.9 % (42.0-52.0); HGB - HEMOGLOBIN 13.9 g/dL (14.0-18.0); MEAN PLATELET VOLUME 9.4 fL (7.4-11.4); NRBC ABSOLUTE COUNT (AUTO) 0.00 x10^3/uL; NUCLEATED RED BLOOD CELLS AUTO 0.0 /100WBC; PLT - PLATELET COUNT 134 10^3/uL (130-450); RED CELL DISTRIBUTION WIDTH 12.2 % (12.0-15.0)
--- NOTE | 2025-01-27 08:11 | ED Physician Documentation ---
History of Present Illness Stated complaint Stated Complaint: SOA, BACK PX Chief complaint Chief Complaint: Back Pain Additonal information Additional information: Patient is a 74-year-old male with history of hypertension, previous instances of colon cancer as well as lung cancer requiring lobectomy on the left side, presenting with multiple complaints. Patient states that last week he developed bilateral lumbar back pain which is abnormal for him. He noticed this Sunday morning, 4 days ago after waking up. Prior to this he had been storing things in his camper, and thinks that moving around heavy objects may have caused the pain. However after this over the next 3 days, he developed new chest tightness and shortness of breath. He is stating that he feels very short of breath with minimal exertion and ambulation, but at rest feels okay. This is abnormal for him. Denies previous history of similar symptoms. He does have a history of lower extremity stenting, due to peripheral vascular disease, but is currently not on aspirin or any blood thinners. He denies any fever, chills, nausea, vomiting. Denies recent upper respiratory infectious symptoms. He denies flank pain, or any changes to urination. He does endorse decreased bowel movements over the last couple days but is passing flatus. He does not wear oxygen at baseline. Denies previous history of blood clot or pulmonary embolism. Review of Systems Status of ROS: [facility] Med[facility]All[facility] Home Medications Ambulatory Orders Medication Instructions Recorded Confirmed omeprazole 20 mg capsule,delayed 20 mg PO DAILY 01/27/25 release cyanocobalamin (vitamin B-12) 500 500 mcg PO DAILY 11/1401/27/25 mcg tablet (B-12 DOTS) folic acid 1 mg tablet 1 mg PO DAILY 01/27/2501/27 lisinopril 20 mg tablet 20 mg PO QPM 01/27/25 vit C 250 mg-vit E 90 mg-zinc 40 1 tab PO BID 01/27/25 01/27/25 mg-copper 1 [id number] capsule ([facility] AREDS-2) Allergies Allergies Allergy/AdvReac Type Severity Reaction Status Date / Time No Known Drug Allergies Allergy Verified 02/28/23 09:44 [facility] Active Problems All Active Problems (Updated 01/27/25 @ 16:04 by Sacha Mathis) Acute back pain (Acute) Acute hypoxic respiratory failure (Acute) Heart failure (Chronic) Medical History Medical History (Updated 01/27/25 @ 16:04 by Sacha Mathis) Back pain Hypertension Macular degeneration Surgical History Surgical History H/O shoulder surgery S/P insertion of iliac artery stent History of colon resection Status post partial lobectomy of lung Social History Social History (Updated 01/27/25 @ 08:34 by Alison Estrada RN) Smoking Status: Former smoker If you are a former smoker, when did you quit? (Date/Year): May 2016 Number of Years Smoked: 50 Do you dip or chew tobacco?: No Do you vape?: No Smoking Status Details: 2016 Living arrangement: At home Marital Status: Living Condition: With spouse/s.o. and Other Living Condition Notes: 20# [employer] [facility] Support Person: Yes Has a Durable Power of Private Client Advisor for Health Care?: Yes Name / Relationship: La- DPOA on file?: No Has Health Care Directive?: No Health Care Directive on file?: No DPOA / Health Care Directive - Additional Notes: [place] Activity: Walking Level: Independent Home Mobility Equipment: Cane Do you feel safe in your home environment?: Yes History of physical, verbal, emotional, or financial abuse?: No ETOH Use: Beer Frequency: Daily Retired: Yes Known occupational exposures/hazards (Current/Previous): paint on vehicles Service: Yes Dates of Service: February 20- February 21, 1993 Are you following a diet prescribed by a doctor: No Are you following a special diet: No Exam Exam Vital Signs: Vital Signs x48h Pulse Resp BP Pulse Ox 01/27/25 13:48 88 22 174/86 H 95 01/27/25 13:48 93 01/27/25 13:46 88 20 93 01/27/25 13:19 85 21 172/90 H 94 01/27/25 12:19 91 27 H 159/83 H 93 Constitutional normal general appearance Resting comfortably, no acute distress. Nontoxic, no diaphoresis, no pallor. HENMT normocephalic Eyes PERRL, conjunctivae normal and no scleral icterus Neck/C-Spine cervical spine nontender, cervical full ROM noted and no meningeal signs Respiratory Mildly diminished breath sounds bilaterally, no wheeze, no rhonchi, no rales. Saturating at 94% on room air at rest. No accessory muscle use. Cardiovascular normal heart rate noted, regular rhythm noted, no murmur and peripheral pulses 2+ throughout Normal S1S2, no murmurs. Radial pulses 2+, symmetric. Gastrointestinal abdomen soft to palpation, nontender to palpation, nontender to percussion, nondistended and normoactive bowel sounds Genitourinary no CVA tenderness Back/Pelvis no thoracic spine tenderness, no lumbar spine tenderness, thoracic spine ROM normal and lumbar spine ROM normal No stepoffs, no deformities, Nontender to palpation throughout lumbar spine and thoracic spine Extremities normal to inspection, no tenderness and full ROM Neurology manager talent acquisition II-XII intact and no fasciculations noted Psychiatry mental status grossly normal and oriented x3 Skin skin color normal Results Vitals Vitals: Vital Signs - 24 hr 01/27/25 07:25 01/27/25 07:29 01/27/25 07:33 Temperature 36.8 C 36.8 C Temperature Source Oral Oral Pulse Rate 95 95 88 Respiratory Rate 18 18 18 Blood Pressure 193/93 H 193/93 H 169/85 H O2 Saturation 95 95 93 O2 Source Room air Room air Room air Pain Intensity 7 7 7 01/27/25 08:00 01/27/25 08:51 01/27/25 08:51 Temperature Temperature Source Pulse Rate 86 94 93 Respiratory Rate 14 21 18 Blood Pressure 179/95 H O2 Saturation 93 92 94 O2 Source Pain Intensity 01/27/25 09:32 01/27/25 09:32 01/27/25 09:32 Temperature Temperature Source Pulse Rate 90 89 88 Respiratory Rate 18 22 17 Blood Pressure 177/83 H 177/83 H 177/83 H O2 Saturation 93 93 94 O2 Source Pain Intensity 01/27/25 11:19 01/27/25 11:19 01/27/25 11:19 Temperature Temperature Source Pulse Rate 87 84 84 Respiratory Rate 18 20 19 Blood Pressure 176/87 H 176/87 H 176/87 H O2 Saturation 91 L 93 92 O2 Source Pain Intensity 01/27/25 12:19 01/27/25 13:19 01/27/25 13:46 Temperature Temperature Source Pulse Rate 91 85 88 Respiratory Rate 27 H 21 20 Blood Pressure 159/83 H 172/90 H O2 Saturation 93 94 93 O2 Source Pain Intensity 01/27/25 13:48 01/27/25 13:48 Temperature Temperature Source Pulse Rate 88 Respiratory Rate 22 Blood Pressure 174/86 H O2 Saturation 93 95 O2 Source Pain Intensity Oxygen O2 Source Room air Labs Labs: Laboratory Tests 01/27/25 07:49 WBC 8.4 RBC 4.20 L Hgb 13.9 L Hct 40.9 L MCV 97.4 H MCH 33.1 H MCHC 34.0 RDW 12.2 Plt Count 134 MPV 9.4 Neut # (Auto) 6.4 Lymph # (Auto) 0.7 L [place] # (Auto) 1.2 H Eos # (Auto) 0.0 Baso # (Auto) 0.1 Absolute Nucleated RBC 0.00 Nucleated RBC % 0.0 Sodium 128 L Potassium 3.9 Chloride 93 L Carbon Dioxide 25 Anion Gap 10.0 BUN 8 Creatinine 0.8 Estimated GFR (MDRD) 95 Glucose 111 H Calcium 9.3 Total Bilirubin 1.7 H AST 21 ALT 17 Alkaline Phosphatase 61 Troponin I High Sens 16.2 B-Natriuretic Peptide 1085 H Total Protein 7.6 Albumin 4.4 Globulin 3.2 Albumin/Globulin Ratio 1.4 Procalcitonin Immunoas 0.14 PD Medical Decision Making ED course ED course: Assessment: 74-year-old male presenting with acute onset of dyspnea with exertion over the last couple days, lower back pain that is bilateral. Also endorsing abdominal pain. Has never had this previous constellation of symptoms. Does have history of colon cancer as well as lung cancer in addition to right lower extremity stenting secondary to peripheral vascular disease. DDx: Includes but not limited to, ACS, OR, NSTEMI, STEMI, pericarditis, pulmonary embolism, lung cancer, heart failure exacerbation, pneumonia, cholecystitis, Cholelithiasis, UTI, pyelonephritis, musculoskeletal lumbar back pain, lumbar disc injury, etc. Workup: CBC notable for hemoglobin 13.9, RBC 4.20, elevated MCV and MCH. Sodium 128, T. bili 1.7. Kidney function normal. BUN within normal limits. Procalcitonin normal. BNP 1085. Respiratory panel negative. Chest x-ray with enlarged appearance of heart, and increased vascularity. No consolidations, no pneumothorax, stable appearance of diaphragm, no osseous abnormalities. CT abdomen shows mild left pleural effusion, minimal diverticulosis. CTA chest shows no PE, a mild left-sided pleural effusion. Stable appearance of pulmonary nodule in the left side since 2021. CT lumbar spine shows severe spinal stenosis at L3-L4, as well as multilevel foraminal narrowing. EKG per my read: Normal sinus rhythm, normal intervals apartment QTc 486, minimal leftward axis deviation, no malignant ST segment changes. Treatment: Lasix 40 mg. Discussion: Workup today is largely unremarkable, with reassuring imaging findings, EKG. Troponin is not elevated. There is no evidence of PE. However he does have significant elevation in BNP, with cardiomegaly. This apparently has not been disclosed to patient or his previously. He has no known history of heart failure. He is symptomatic with shortness of breath and with exertion which is abnormal for him. I did give him 40 of Lasix to alyssa, and recommend admission to the hospital for observation, and echocardiogram. Patient was admitted to the hospital with hospitalist service. During my shift he was transferred to the floor. Discharge Plan Discharge Patient Disposition: [facility] DC/Xfer Condition: Stable Clinical Impression: Heart failure Interventions: ED Admission Assessment Last Done: 01/27/25 15:04 Vitals documented within 30 minutes of discharge?: Yes
[2025-01-27 08:12] LABS: ALT ALANINE AMINOTRANSFERASE 17.0 IU/L (10-60); AST ASPARTATE AMINOTRANSFERASE 21.0 IU/L (10-42); BUN - BLOOD UREA NITROGEN 8.0 mg/dL (6-20); CARBON DIOXIDE - CO2 25.0 mmol/L (21-32); CREATININE 0.8 mg/dL (0.6-1.3); GFR - MDRD 95.0 (>89)
--- NOTE | 2025-01-27 08:17 | XRAY Report ---
PROCEDURE: XR Chest 1V INDICATIONS: chest pain, SOB TECHNIQUE: One view of the chest was acquired. COMPARISON: CT chest 2021 FINDINGS: Surgical changes and devices: Partially visualized left humeral ORIF. Lungs and pleura: Trace blunting of the left costophrenic angle. Mild appearance of increased vascularity Mediastinum: Mediastinal contours appear normal. Heart size is enlarged. Bones and chest wall: No suspicious bony lesions. Overlying soft tissues appear unremarkable. IMPRESSION: Cardiomegaly with increased vascularity suggestive of edema. Trace left effusion. Reviewed by: Diamond Norris MD on 01/27/2025 8:13 AM PDT Approved by: Diamond Norris MD on 01/27/2025 8:13 AM PDT Station ID: [id number]
[2025-01-27] MEDS: FUROSEMIDE 40 MG/4 ML VIAL IVP STA (08:55)
--- NOTE | 2025-01-27 09:03 | CT Report ---
PROCEDURE: CT Angio Chest INDICATIONS: PE, dsypnea, hx of lung cancer CONTRAST: 100ml omni 300 TECHNIQUE: After the administration of intravenous contrast images of the chest were acquired. 3-dimensional coronal oblique maximum intensity projection (MIP) reformats, axial MIP, and coronal and sagittal MPR reformats were then performed through the chest. For radiation dose reduction, the following was used: automated exposure control, adjustment of mA and/or kV according to patient size. COMPARISON: CT abdomen pelvis 01/27/2025, CT chest 2021 FINDINGS: Image quality: Excellent. Large vessels: No filling defects within the opacified pulmonary arteries, accounting for motion and contrast timing. No evidence of acute aortic syndrome or aortic aneurysm. Lungs and pleura: Mild left pleural effusion.. No pneumothorax. No suspicious pulmonary nodules which require follow up. Emphysematous changes are present bilaterally. Previous identified right middle lobe nodule series 7 image 215 is unchanged. Mediastinum: Heart size is normal. No pericardial effusion. No large vessel abnormality. No mediastinal adenopathy by size criteria. Chest wall and lower neck: Thyroid is unremarkable. No axillary or supraclavicular adenopathy by size. Bones: No aggressive osseous abnormality. Upper Abdomen: Unremarkable. IMPRESSION: No pulmonary embolus. Mild left pleural effusion. Stable right middle lobe nodule since 2021 considered benign. Reviewed by: Diamond Norris MD on 01/27/2025 9:00 AM PDT Approved by: Diamond Norris MD on 01/27/2025 9:00 AM PDT Station ID: [id number]
--- NOTE | 2025-01-27 09:05 | CT Report ---
PROCEDURE: CT Abdomen/Pelvis W INDICATIONS: Upper abdominal pain, generalized CONTRAST: 100ml omni 300 TECHNIQUE: After the administration of intravenous contrast, a CT scan of the abdomen and pelvis was performed. Images were recorded and evaluated at appropriate window settings. Reformats: coronal and sagittal. For radiation dose reduction, the following was used: automated exposure control, adjustment of mA and/or kV according to patient size. COMPARISON: CT chest 01/27/2025 FINDINGS: Image quality: Diagnostic. Lower chest: Mild left effusion. Liver: No solid mass. Gallbladder: Biliary tree: No intrahepatic or extrahepatic dilation, accounting for age. Spleen: No splenomegaly. Pancreas: No pancreatic ductal dilation. Adrenals: No adrenal nodule. Kidneys and ureters: No hydronephrosis. No renal cystic lesion which requires follow up. No solid mass. Stomach, bowel and peritoneum: No gastric or small bowel dilation. No abnormal wall thickening. No pathologic free fluid. Minimal diverticula without inflammatory change. Lymph nodes: No central or retroperitoneal adenopathy. Vessels: No infrarenal aortic aneurysm. Patent portal vein. Atherosclerotic calcifications and scattered areas of mural thrombus are present within the abdominal and pelvic aorta. PELVIS Reproductive organs: Unremarkable. Bladder: No abnormal wall thickening. Pelvic lymph nodes: No pelvic adenopathy by size criteria. Bones: No aggressive osseous abnormality. Other: Prominent fat-containing ventral hernia. IMPRESSION: Mild left effusion. Minimal diverticulosis. Reviewed by: Diamond Norris MD on 01/27/2025 9:02 AM PDT Approved by: Diamond Norris MD on 01/27/2025 9:02 AM PDT Station ID: [id number]
[2025-01-27] MEDS: CYCLOBENZAPRINE 10 MG TABLET PO STA (09:06)
--- NOTE | 2025-01-27 09:08 | CT Report ---
PROCEDURE: CT Lumbar Spine WO INDICATIONS: New onset lumbar back pain, bilateral TECHNIQUE: Noncontrast images acquired from the T12 level to the sacrum. Sagittal and coronal reformats were constructed. For radiation dose reduction, the following was used: automated exposure control, adjustment of mA and/or kV according to patient size. COMPARISON: MRI lumbar spine 2021 FINDINGS: Image quality: Excellent. Bones: There is normal bony alignment. No acute vertebral body compression fractures. No suspicious lytic or blastic bony lesions. Central spinal caliber is of normal overall caliber. No pars defects. Multilevel degenerative disc space narrowing is present. Scattered disc bulges are present throughout the lumbar spine. Scattered areas of mild to moderate spinal stenosis are present most severe at L3-4. Multilevel facet and ligamentum flavum arthropathy are present. Multilevel foraminal narrowing is present most severe at L5-S1. Soft tissues: No retroperitoneal masses or hematomas. Visualized aorta is normal in caliber. IMPRESSION: Multilevel degenerative changes. Multilevel spinal stenosis most severe at L3-4. Multilevel foraminal narrowing most severe at L5-S1. Reviewed by: Diamond Norris MD on 01/27/2025 9:04 AM PDT Approved by: Diamond Norris MD on 01/27/2025 9:04 AM PDT Station ID: [id number]
--- NOTE | 2025-01-27 15:34 | HISTORY & PHYSICAL EXAMINATION ---
Chief Complaint Chief Complaint Chief Complaint: Shortness of breath History of Present Illness Admitted From Admitted From:: Home History Obtained From Records Reviewed: EMR History obtained from: Patient Exam Limitations: None History of Present Illness HPI Comment/Other: Alok Plunkett is a 74 year-old male with PMH of HTN, colon and lung cancer with left lobectomy, and illiac stent for pvd. Patient presents to ED for dyspnea on exertion and back pain. Patient states his dyspnea started 4 days ago when he was moving around boxes in his trailer. He picked up a 25lb box and was walking with it when he felt severely out of breath, he put the box down and attempted to catch his breath. He reports it took him 5-10 minutes to catch his breath to where he felt back to normal. He states that he's noted increasing dyspnea over the past few weeks. He has a significant tobacco use history; no longer using tobacco. PFTs from 2016 were reviewed - even at that time, emphysema was noted even at that time. He also had lung cancer with a lobectomy over 8 years ago. Has been stable since. Patient has not seen a inseam trimming machine operator since. He has not been on any inhalers. He has noted a steady decline in his respiratory status. He denies any paroxysmal nocturnal dyspnea. However, he does sleep with the head of his bed slightly elevated. He denies any chest pain. He experiences episodic chest tightness, but has not experienced it currently. He does have a cough that is worse than his normal cough. He has had increased sputum production. The sputum quantity has not changed. He denies any fevers or chills. Meds/Allgy Home Medications Ambulatory Orders Medication Instructions Recorded Confirmed omeprazole 20 mg capsule,delayed 20 mg PO DAILY 01/27/25 release cyanocobalamin (vitamin B-12) 500 500 mcg PO DAILY 11/1401/27/25 mcg tablet (B-12 DOTS) folic acid 1 mg tablet 1 mg PO DAILY 01/27/2501/27 lisinopril 20 mg tablet 20 mg PO QPM 01/27/25 vit C 250 mg-vit E 90 mg-zinc 40 1 tab PO BID 01/27/25 01/27/25 mg-copper 1 [id number] capsule ([facility] AREDS-2) Allergies Allergies Allergy/AdvReac Type Severity Reaction Status Date / Time No Known Drug Allergies Allergy Verified 02/28/23 09:44 PFSH Active Problems All Active Problems (Updated 01/27/25 @ 16:04 by Sacha Mathis) Acute back pain (Acute) Acute hypoxic respiratory failure (Acute) Heart failure (Chronic) Medical History Medical History (Updated 01/27/25 @ 16:04 by Sacha Mathis) Back pain Hypertension Macular degeneration Surgical History Surgical History H/O shoulder surgery S/P insertion of iliac artery stent History of colon resection Status post partial lobectomy of lung Social History Social History (Updated 01/27/25 @ 08:34 by Alison Estrada RN) Smoking Status: Former smoker If you are a former smoker, when did you quit? (Date/Year): May 2016 Number of Years Smoked: 50 Do you dip or chew tobacco?: No Do you vape?: No Smoking Status Details: 2016 Living arrangement: At home Marital Status: Living Condition: With spouse/s.o. and Other [facility]: Yes Has a Durable Power of Planning Consultant for Health Care?: Yes Name / Relationship: La- DPOA on file?: No Has Health Care Directive?: No Health Care Directive on file?: No DPOA / Health Care Directive - Additional Notes: [place] Physical Activity: Walking Level: Independent Home Mobility Equipment: Cane Do you feel safe in your home environment?: Yes History of physical, verbal, emotional, or financial abuse?: No ETOH Use: Beer Frequency: Daily Retired: Yes Known occupational exposures/hazards (Current/Previous): paint on vehicles Service: Yes Dates of Service: February 20- February 21, 1993 Are you following a diet prescribed by a doctor: No Are you following a special diet: No Review of Systems Status of ROS: 10 or more systems reviewed and unremarkable except as noted in history and below Cardiovascular Reports: shortness of breath with exertion Respiratory Reports: Shortness of breath and SOB with exertion Prior Level of Functionality: Independent of ADLs. Active. Does use a cane at times to ambulate. Exam Exam Vital Signs: Vital Signs x48h Temp Pulse Pulse Resp BP BP Pulse Ox 10/07/25 17:00 99.5 F 94 18 177/95 H 95 01/27/25 14:48 99.1 F 99 16 152/96 H 93 01/27/25 13:48 88 22 174/86 H 95 01/27/25 13:48 93 01/27/25 13:46 88 20 93 01/27/25 13:19 85 21 172/90 H 94 01/27/25 12:19 91 27 H 159/83 H 93 01/27/25 11:19 84 19 176/87 H 92 01/27/25 11:19 84 20 176/87 H 93 01/27/25 11:19 87 18 176/87 H 91 L Constitutional normal general appearance, no apparent distress, average body habitus, no limitations and alert HENMT normocephalic Eyes PERRL Neck/C-Spine visual inspection normal and trachea midline Chest inspection of chest normal Respiratory breath sounds equal bilaterally, normal respiratory effort and clear to auscultation bilaterally Cardiovascular normal heart rate noted, regular rhythm noted, no gallop, no rub, no murmur, no JVD and no edema Gastrointestinal abdomen normal to inspection, abdomen soft to palpation, nontender to palpation, normoactive bowel sounds, no pulsatile mass and no ascites Extremities normal to inspection and no tenderness Skin skin color normal, no rash, no lesions, no ecchymosis noted, no wounds, no lacerations and skin turgor normal Conclusion/Plan Problem List (1) Acute hypoxic respiratory failure: Plan: Patient admitted to observation for acute hypoxic respiratory failure based on HPI of dyspnea on exertion and low oxygen saturations in the ED. Likely cause of AHRF is COPD exacerbation based Previously dx with COPD (emphysema) in 2016, Spirometry report from 04/17/16 reveals FEV1/FVC = 60, Results indicate airway obstruction - Emphysematous type. HPI reveals significant smoking history 1pk/day for 30 years and quit 15-20 years ago. However, labs indicated elevated BNP 10[address] and positive finding on CT mild left pleural effusion which do not rule out a new onset heart failure. HPI reveals longstanding HTN since 1989 which can be seen as a possible RF. Viral respiratory panel was negative, as was procalcitonin, further helping rule out PNA or Viral causation. - Echocardiogram to r/o heart failure - Order Duonebs as needed - Treatment with Lasix to diurese - Monitor strict I/O, daily weights - Cardiac Diet, fluid restriction of 1500 cc/day (2) Acute back pain: Plan: Backpain was most likely a strain based on HPI and mechanism of injury. Patient had significant relief with Flexeril. Lumbar Spine CT showed chronic degenerative changes, no acute findings to suggest trauma or recent fractures. - Continue Flexeril PRN, Tylenol PRN (3) Hypertension: Plan: - Continue lisinopril Lab Results Lab results reviewed: Yes 01/27/25 07:49 01/27/25 07:49 Diagnostic Imaging Results Diagnostic Imaging Results: positive Final report reviewed EKG Results EKG Interpreted Independently: Yes Core Measures Anticipated LOS I expect patient to be DC'd or transferred within 96 hours.: Yes Issues Hospital Issues and Management Plan: None anticip[ated. DVT/VTE - Prophylaxis VTE/DVT Device ordered at admit?: No Not Ordered - Medical Reason: Not indicated VTE/DVT Prophylaxis med ordered at admit?: Yes Stroke - Rehab Assessment Rehab services assessment to be ordered?: No Not Ordered - Medical Reason: Not indicated AMI - Statin at Admit Aspirin Prescribed on Admit: No Not Ordered - Medical Reason: Not indicated
[2025-01-27 15:40] LABS: B. PARAPERTUSSIS- RESP PCR PAN NOT DETECTED; B. PERTUSSIS- RESP PCR PANEL NOT DETECTED; C. PNEUMONIAE- RESP PCR PANEL NOT DETECTED; CORONAVIRUS 229E-RESP PCR NOT DETECTED; CORONAVIRUS HKU1-RESP PCR NOT DETECTED; CORONAVIRUS NL63-RESP PCR NOT DETECTED; CORONAVIRUS OC43-RESP PCR NOT DETECTED; HUMAN METAPNEUMOVIRUS NOT DETECTED; INFLUENZA A- RESP PCR PANEL NOT DETECTED; INFLUENZA B - RESP PCR PANEL NOT DETECTED; M. PNEUMONIAE- RESP PCR PANEL NOT DETECTED; PARAINFLUENZA VIRUS 1 NOT DETECTED; PARAINFLUENZA VIRUS 2 NOT DETECTED; PARAINFLUENZA VIRUS 4 NOT DETECTED; RHINOVIRUS/ENTEROVIRUS NOT DETECTED; RSV- RESP PCR PANEL NOT DETECTED; SARS-CoV-2 -RESP PCR PANEL NOT DETECTED
--- NOTE | 2025-01-27 15:47 | PHARMACY PROGRESS NOTE ---
Best Possible Medication History Admit Date and Time: 01/27/25 391111 Home Medications Medication Instructions Recorded Confirmed Type omeprazole 20 mg capsule,delayed 20 mg PO DAILY 01/27/25 History release cyanocobalamin (vitamin B-12) 500 500 mcg PO DAILY 11/1401/27/25 History mcg tablet (B-12 DOTS) folic acid 1 mg tablet 1 mg PO DAILY 01/27/2501/27 History lisinopril 20 mg tablet 20 mg PO QPM 01/27/25 History vit C 250 mg-vit E 90 mg-zinc 40 1 tab PO BID 01/27/25 01/27/25 History mg-copper 1 [id number] capsule ([facility] AREDS-2) Processed by: Pharmacy Medications reviewed in ED?: Yes Medication History completed: Yes Patient Interview: Completed Secondary Source(s): Insurance records [facility] Statement: As the person ultimately responsible for medication therapy, providers are able to order a medication from an existing home medication list in [facility] via the "Reconcile Routine" prior to Confirmation of that medication by business support manager. Such practice is discouraged except when the physician, in their clinical judgment, deems that a medical need exists for a medication without regard to previous use.
[2025-01-27] MEDS: SODIUM CHLORIDE FLUSH 0.9% 10 ML SYRINGE IVP SCH (16:21)
[2025-01-27] MEDS: FUROSEMIDE 20 MG/2 ML VIAL IVP SCH (16:21)
[2025-01-27] MEDS ORDERED: IPRATROPIUM/ALBUTEROL 3 ML NEB INH PRN (18:28)
--- OUTSIDE RECORDS SUMMARY | 2025-01-27 20:24 | EXTERNAL MEDICAL SUMMARY RPT | Continuity of Care Document ---
Author Organization [facility] Address [address] [address] Phone Problems date description facility 2025-01-27 14:00 Acute respiratory failure with hypoxia [facility] 2025-01-27 14:14 Acute [facility] 2025-01-27 14:58 Acute respiratory failure with hypoxia [facility] 2025-01-27 19:03 Acute respiratory failure with hypoxia [facility] Results/Labs test date facility value unit notes Result panel 1 SARS-CoV-2 -RESP PCR PANEL 2025-01-27 [employer] NOT DETECTED (missing) A negative test result for this test indicates that SARS-CoV-2 RNA was not present in the specimen above the limit of detection. Testing performed on the BioFire RP2.1 Panel, a multiplexed nucleic acid repiratory panel. Negative results do not preclude infection with SARS-CoV-2 virus and should not be the sole basis of a patient management decision. In some patients repeat testing at various time points may be necessary for virus detection. False-negative results may arise from improper sample collection, degradation of viral RNA during shipping or storage, the presence of PCR inhibitors, and/or mutation in the SARS-CoV-2 virus. INFLUENZA A- RESP PCR PANEL 2025-01-27 [facility] NOT DETECTED (missing) Influenza A including subtypes H1, H3, and H1-2009 not detected by the BioFire RP2.1 Panel, a multiplexed nucleic acid test intended for the simultaneous qualitative detection and differentiation of nucleic acids from multiple viral and bacterial respiratory organisms. ADENOVIRUS - RESP PCR PANEL 2025-01-27 [facility] NOT DETECTED (missing) NO Y NO UNKNOWN NO NO NO NO Negative results in the setting ofa respiratory illness may be due to infection with pathogens not detected by this test, or lower respiratory tract infection that may not be detected by nasopharyngeal specimen. B. PARAPERTUSSIS- RESP PCR PÉREZ 2025-01-27 [facility] NOT DETECTED (missing) Negative results for this organism do not preclude infection with this organism and may require additional laboratory testing (e.g., bacterial and viral culture, immunofluorescence, and radiography) when evaluating a patient with possible respiratory tract infection. B. PERTUSSIS- RESP PCR PANEL 2025-01-27 [facility] [employer] [facility] NOT DETECTED (missing) Negative results for this organism do not preclude infection with this organism and may require additional laboratory testing (e.g., bacterial and viral culture, immunofluorescence, and radiography) when evaluating a patient with possible respiratory tract infection. C. PNEUMONIAE- RESP PCR PANEL 2025-01-27 [facility] NOT DETECTED (missing) Negative results for this organism do not preclude infection with this organism and may require additional laboratory testing (e.g., bacterial and viral culture, immunofluorescence, and radiography) when evaluating a patient with possible respiratory tract infection. M. PNEUMONIAE- RESP PCR PANEL 2025-01-27 [facility] [employer] NOT DETECTED (missing) Negative results for this organism do not preclude infection with this organism and may require additional laboratory testing (e.g., bacterial and viral culture, immunofluorescence, and radiography) when evaluating a patient with possible respiratory tract infection. CORONAVIRUS 229E-RESP PCR 2025-01-27 [facility] NOT DETECTED (missing) Negative results in the setting ofa respiratory illness may be due to infection with pathogens not detected by this test, or lower respiratory tract infection that may not be detected by nasopharyngeal specimen. CORONAVIRUS HKU1-RESP PCR 2025-01-27 [facility] NOT DETECTED (missing) Negative results in the setting ofa respiratory illness may be due to infection with pathogens not detected by this test, or lower respiratory tract infection that may not be detected by nasopharyngeal specimen. CORONAVIRUS BT92-MSVT PCR 2025-01-27 [facility] NOT DETECTED (missing) Negative results in the setting ofa respiratory illness may be due to infection with pathogens not detected by this test, or lower respiratory tract infection that may not be detected by nasopharyngeal specimen. CORONAVIRUS [id number]-[id number] PCR 2025-01-27 [facility] NOT DETECTED (missing) Negative results in the setting ofa respiratory illness may be due to infection with pathogens not detected by this test, or lower respiratory tract infection that may not be detected by nasopharyngeal specimen. HUMAN METAPNEUMOVIRUS 2025-01-27 [facility] NOT DETECTED (missing) Negative results in the setting ofa respiratory illness may be due to infection with pathogens not detected by this test, or lower respiratory tract infection that may not be detected by nasopharyngeal specimen. INFLUENZA B - RESP PCR PANEL 2025-01-27 [facility] NOT DETECTED (missing) Negative results in the setting ofa respiratory illness may be due to infection with pathogens not detected by this test, or lower respiratory tract infection that may not be detected by nasopharyngeal specimen. PARAINFLUENZA VIRUS 1 2025-01-27 [facility] NOT DETECTED (missing) Negative results in the setting ofa respiratory illness may be due to infection with pathogens not detected by this test, or lower respiratory tract infection that may not be detected by nasopharyngeal specimen. PARAINFLUENZA VIRUS 2 2025-01-27 [facility] NOT DETECTED (missing) Negative results in the setting ofa respiratory illness may be due to infection with pathogens not detected by this test, or lower respiratory tract infection that may not be detected by nasopharyngeal specimen. PARAINFLUENZA VIRUS 3 2025-01-27 [facility] NOT DETECTED (missing) Negative results in the setting ofa respiratory illness may be due to infection with pathogens not detected by this test, or lower respiratory tract infection that may not be detected by nasopharyngeal specimen. PARAINFLUENZA VIRUS 4 2025-01-27 [facility] NOT DETECTED (missing) Negative results in the setting ofa respiratory illness may be due to infection with pathogens not detected by this test, or lower respiratory tract infection that may not be detected by nasopharyngeal specimen. RHINOVIRUS/ENTEROVIR US 2025-01-27 [facility] NOT DETECTED (missing) Negative results in the setting ofa respiratory illness may be due to infection with pathogens not detected by this test, or lower respiratory tract infection that may not be detected by nasopharyngeal specimen. RSV- RESP PCR PANEL 2025-01-27 [facility] NOT DETECTED (missing) Negative results in the setting ofa respiratory illness may be due to infection with pathogens not detected by this test, or lower respiratory tract infection that may not be detected by nasopharyngeal specimen. Result panel 2 NUCLEATED RED BLOOD CELLS AUTO 2025-01-27 07:49 [facility] 0.0 /100wbc (missing) EOSINOPHILS # (AUTO) 2025-01-27 07:49 [facility] 0.0 10 3/ul (missing) NRBC ABSOLUTE COUNT (AUTO) 2025-01-27 07:49 [facility] 0.00 x10 3/ul (missing) BASOPHILS # (AUTO) 2025-01-27 07:49 [facility] 0.1 10 3/ul (missing) PROCALCITONIN 2025-01-27 07:49 [facility] 0.14 ng/ml PCT Concentration (ng/mL) Children >72hrs old and Adults Interpretation ====== ======= <0.5 Low risk of severe sepsis and/or septic shock >2.0 High risk of severe sepsis and/or septic shock Concentrations under 0.5 ng/mL do not exclude local infections or systemic infections in their initial stages (e.g. under six hours from onset of illness). PCT concentrations between 0.5 and 2.0 ng/mL should be interpreted with consideration of the patient's history. In this range, it is recommended to retest PCT within 6 to 24hours. LYMPHOCYTES # (AUTO) 2025-01-27 07:49 [facility] 0.7 10 3/ul (missing) CREATININE 2025-01-27 07:49 [facility] 0.8 mg/dl As of October 2022 testing method has changed, this may include reference ranges. MONOCYTES # (AUTO) 2025-01-27 07:49 [facility] 1.2 10 3/ul (missing) ALBUMIN/GLOBULIN RATIO 2025-01-27 07:49 [facility] 1.4 (missing) (missing) BILIRUBIN,TOTAL 2025-01-27 07:49 [facility] 1.7 mg/dl As of October 2022 testing method has changed, this may include reference ranges. ANION GAP 2025-01-27 07:49 [facility] 10.0 (missing) (missing) BNP - B-NATRIURETIC PEPTIDE 2025-01-27 07:49 [facility] 1085 pg/ml (missing) GLUCOSE 2025-01-27 07:49 [facility] 111 mg/dl As of October 2022 testing method has changed, this may include reference ranges. RED CELL DISTRIBUTION WIDTH 2025-01-27 07:49 [facility] 12.2 % (missing) SODIUM 2025-01-27 07:49 [facility] 128 mmol/l Unknown HGB - HEMOGLOBIN 2025-01-27 07:49 [facility] 13.9 g/dl (missing) PLT - PLATELET COUNT 2025-01-27 07:49 [facility] 134 10 3/ul (missing) TROPONIN I HIGH SENSITIVITY 2025-01-27 07:49 [facility] 16.2 ng/l A HIGH SENSITIVITY TROPONIN result of >= 14.9 ng/L for females is considered POSITIVE. A HIGH SENSITIVITY TROPONIN result of >= 19.8 ng/L for males is considered POSITIVE. A HIGH SENSITIVITY TROPONIN result of >= 17.9 ng/L for unspecified is considered POSITIVE. ALT ALANINE AMINOTRANSFERASE 2025-01-27 07:49 [facility] 17 iu/l As of October 2022 testing method has changed, this may include reference ranges. AST ASPARTATE AMINOTRANSFERASE 2025-01-27 07:49 [facility] 21 iu/l As of October 2022 testing method has changed, this may include reference ranges. CARBON DIOXIDE - CO2 2025-01-27 07:49 [facility] 25 mmol/l As of October 2022 testing method has changed, this may include reference ranges. GLOBULIN 2025-01-27 07:49 [facility] 3.2 g/dl (missing) POTASSIUM 2025-01-27 07:49 [facility] 3.9 mmol/l As of October 2022 testing method has changed, this may include reference ranges. MEAN CORPUSCULAR HEMOGLOBIN 2025-01-27 07:49 [facility] 33.1 pg (missing) MEAN CORPUSCULAR HGB CONC 2025-01-27 07:49 [facility] 34.0 g/dl (missing) RED BLOOD COUNT 2025-01-27 07:49 [facility] 4.20 10 6/ul (missing) ALBUMIN 2025-01-27 07:49 [facility] 4.4 g/dl As of October 2022 testing method has changed, this may include reference ranges. HCT - HEMATOCRIT 2025-01-27 07:49 [facility] 40.9 % (missing) NEUTROPHILS # (AUTO) 2025-01-27 07:49 [facility] 6.4 10 3/ul (missing) ALKALINE PHOSPHATASE 2025-01-27 07:49 [facility] 61 iu/l As of October 2022 testing method has changed, this may include reference ranges. TOTAL PROTEIN 2025-01-27 07:49 [facility] 7.6 g/dl As of October 2022 testing method has changed, this may include reference ranges. BUN - BLOOD UREA NITROGEN 2025-01-27 07:49 [facility] 8 mg/dl As of October 2022 testing method has changed, this may include reference ranges. WHITE BLOOD COUNT 2025-01-27 07:49 [facility] 8.4 x10 3/ul (missing) CALCIUM 2025-01-27 07:49 [facility] 9.3 mg/dl As of October 2022 testing method has changed, this may include reference ranges. MEAN PLATELET VOLUME 2025-01-27 07:49 [facility] 9.4 fl (missing) CHLORIDE 2025-01-27 07:49 [facility] 93 mmol/l As of October 2022 testing method has changed, this may include reference ranges. GFR - MDRD 2025-01-27 07:49 [facility] 95 (missing) The IDMS-traceable MDRD Study Equation has been validated extensively in and populations between the ages of 18 and 70 with impaired kidney function (eGFR < 60 mL/min/1.73m2) and has shown good performance for patients with all common causes of kidney disease. Although this equation has not been validated for patients older than 70, an MDRD-derived eGFR may still be a useful tool for providers caring for patients older than 70. References: http://www.nkdep.ni h.gov/lab-evaluatio n/gfr/creatinine-st and ardization, last updated June 2011. MEAN CORPUSCULAR VOLUME 2025-01-27 07:49 [facility] 97.4 fl (missing) Social History date description facility
--- NOTE | 2025-01-27 22:21 | ECHO Report ---
Version: 1 Study ID: [id number] [address] Adult Echocardiogram Report Name: BARBARA ALFARO Study Date: 01/27/2025, 12: 09 PM BP: 176 / 87 mmHg Patient Location: ^RM01^RM01 HR: 87 bpm : 1950 (MM/DD/YYYY) Gender: Male Height: 66 in Age: 74 Years Weight: 173.724 lb BSA: 1.88 m² Reason For Study: COREY History: New onset CHF Interpretation Summary There is mild concentric increase in the wall thickness of the left ventricle. The visual left ventricular ejection fraction is estimated at 35 to 40%. The right ventricle is mildly dilated. The right ventricular systolic function is low normal. The aortic valve is not well visualized. Mild aortic regurgitation is present. Aortic valve velocities may be underestimated due to technically difficult study and suboptimal Doppler angle. The aorta at the level of the sinuses of Valsalva is mildly dilated. The aorta at the sinus of Valsalva measures 4.1cm. Left Ventricle: The left ventricle is normal in size. There is mild concentric increase in the wall thickness of the left ventricle. Global left ventricular systolic function is moderately decreased. The visual left ventricular ejection fraction is estimated at 35 to 40%. Diastolic function could not be accurately assessed due to unobtainable data. Right Ventricle: The basal right ventricular diameter measured from a right ventricular focused view is 4.6 cm. The right ventricle is mildly dilated. The right ventricular systolic function is low normal. Aortic Valve: The aortic valve is trileaflet. The aortic valve is mildly calcified. The aortic valve is not well visualized. The degree of aortic stenosis may be underestimated due to low-flow, low gradient hemodynamics. The left ventricular outflow tract to aortic valve velocity ratio is 0.53. Aortic valve velocities may be underestimated due to technically difficult study and suboptimal Doppler angle. Mild aortic regurgitation is present. Mitral Valve: The mitral valve leaflets appear thickened, but with normal motion. Mild mitral annular calcification is present. No evidence of mitral stenosis is seen. There is mild mitral regurgitation. Tricuspid Valve: The tricuspid valve leaflets are moderately thickened. There is no tricuspid stenosis. Mild tricuspid regurgitation present. Pulmonic Valve: The pulmonic valve is normal in structure and function. Trace pulmonic valvular regurgitation is present. Left Atrium: The left atrium is severely dilated. The left atrial volume indexed to body surface area is 48 ml/m2. This refers to the maximal volume measured prior to mitral valve opening. Atrial Septum: Lipomatous hypertrophy of the interatrial septum is present. Aorta: The ascending aorta is not well seen. The aorta at the level of the sinuses of Valsalva is mildly dilated. The aorta at the sinus of Valsalva measures 4.1cm. Pulmonary Artery: The pulmonary artery systolic pressure is mildly increased. The pulmonary artery systolic pressure, calculated from a peak tricuspid regurgitant velocity in conjunction with an estimated right atrial pressure, is 37mmHg. Pericardium/Pleural Space: There is no pericardial effusion. Left Ventricle IVSd: 1.12 cm LVIDd: 4.6 cm LVPWd: 1.07 cm LVIDs: 3.9 cm EDV(MOD-sp4): 83.2 ml LVLd ap4: 7.6 cm ESV(MOD-sp4): 53.2 ml LVLs ap4: 7.6 cm EDV(MOD-sp2): 83.6 ml ESV(MOD-sp2): 51.0 ml Right Ventricle TAPSE: 1.43 cm Atria LA dimension: 5.8 cm LAV(MOD-sp4): 91.9 ml LAV(MOD-sp2): 87.0 ml Diastolic Function MV dec time: 0.20 sec MV E max kaushik: 42.1 cm/sec MV A max kaushik: 65.3 cm/sec Aortic Valve AI max kaushik: 437.9 cm/sec AI max P.7 mmHg LV V1 mean P.28 mmHg LV V1 mean: 53.5 cm/sec LV V1 VTI: 13.8 cm Ao V2 VTI: 26.0 cm Ao mean P.2 mmHg Ao V2 mean: 110.4 cm/sec LV V1 max: 72.6 cm/sec LV V1 max P.12 mmHg Ao max P.5 mmHg Ao V2 max: 145.9 cm/sec Tricuspid Valve TR max P.9 mmHg TR max kaushik: 282.5 cm/sec TV max P.9 mmHg Aorta Ao root diam: 4.1 cm MMode/2D Measurements & Calculations Ao root diam: 4.1 cm BMI: 28.0 kilograms/m² BSA([facility]): 1.93 m² EDV(MOD-sp2): 83.6 ml EDV(MOD-sp4): 83.2 ml EF (est.): 36.0 % EF Mod BP: 36.5 % ESV(MOD-sp2): 51.0 ml ESV(MOD-sp4): 53.2 ml IVSd: 1.12 cm LA A4C-A/L: 23.6 cm² LA dimension: 5.8 cm LA ESV-A/L: 76.1 ml LAV(MOD-sp2): 87.0 ml LAV(MOD-sp4): 91.9 ml LVIDd: 4.6 cm LVIDs: 3.9 cm LVLd ap4: 7.6 cm LVLs ap4: 7.6 cm LVPWd: 1.07 cm TAPSE: 1.43 cm Doppler Measurements & Calculations AI max P.7 mmHg AI max kaushik: 437.9 cm/sec Ao max P.5 mmHg Ao mean P.2 mmHg Ao V2 max: 145.9 cm/sec Ao V2 mean: 110.4 cm/sec Ao V2 VTI: 26.0 cm Lat E/e': 7.4 LV V1 max: 72.6 cm/sec LV V1 max P.12 mmHg LV V1 mean: 53.5 cm/sec LV V1 mean P.28 mmHg LV V1 VTI: 13.8 cm Med E/e': 9.5 MV A max kaushik: 65.3 cm/sec MV dec time: 0.20 sec MV DVI-pr: 0.64 MV E max kaushik: 42.1 cm/sec PA max P.67 mmHg PA V2 max: 64.5 cm/sec RAP systole: 5.0 mmHg TR max P.9 mmHg TR max kaushik: 282.5 cm/sec TV max P.9 mmHg Other Measurements & Calculations Ao root area: 13.2 cm² EDV(Teich): 97.4 ml EF(MOD-sp2): 39.1 % EF(MOD-sp4): 36.0 % EF(sp-el): 49.2 % EF(Teich): 34.2 % ESV(Teich): 64.1 ml FS: 16.2 % MV E/A: 0.64 RVSP(TR): 36.9 mmHg SV(MOD-sp4): 30.0 ml Procedure Notes: A complete two-dimensional transthoracic echocardiogram was performed (2D, M- mode, Doppler and color flow Doppler). Indication: Evaluate cardiac and valve function. This study was focused secondary to limited cardiac windows. Technically difficult study due to lung interference. The study was done with the patient in the supine position, due to inability to lie on the left side. The patient was comfortable and cooperative throughout the procedure. The underlying rhythm was sinus. CPT Codes: 98713/[id number]: Transthoracic Echo with Spectral and Color Doppler. MD Heather Maldonado 01/27/2025, 10: 20 PM Ordering Physician: Gilbert Salazar Performed By: Ranjana Smith RDCS
[2025-01-28] MEDS: ACETAMINOPHEN 325 MG TABLET PO PRN (05:10)
[2025-01-28] MEDS: SODIUM CHLORIDE FLUSH 0.9% 10 ML SYRINGE IVP PRN (05:50)
[2025-01-28] MEDS: PANTOPRAZOLE 40 MG TABLET PO SCH (06:02)
[2025-01-28 07:52] VITALS: O2SAT 94
[2025-01-28] MEDS: FOLIC ACID 1 MG TABLET PO SCH (08:06)
[2025-01-28] MEDS: SPIRONOLACTONE 25 MG TABLET PO SCH (08:06)
[2025-01-28] MEDS: CYANOCOBALAMIN 500 MCG TABLET PO SCH (08:06)
[2025-01-28] MEDS: ENOXAPARIN 40 MG/0.4 ML SYRINGE SUBQ SCH (08:06)
--- NOTE | 2025-01-28 09:09 | Discharge Summary ---
"Discharge Summary Admit Date: 01/27/25 Discharge Date: 01/28/25 Discharging Provider: Dr. Gilbert Salazar Primary Care Provider: Dr. Bora Osullivan Code Status: Attempt Resuscitation Discharge Facility Name: Home, self care DIAGNOSES Discharge Diagnoses with Status of Each Condition: Acute hypoxic respiratory failureresolved. New onset congestive heart failure with reduced ejection fractionpatient presented with worsening shortness of breath, chest imaging with some interstitial edema, as well as a left pleural effusion. proBNP was also elevated. No active chest pain, normal troponin. Echo was ordered, and it shows an EF of 35 to 40%. Discussed with the patient these findingsshe will need close follow-up with primary care provider, as well as a cardiology referral for ischemic workup. He has not had this in the past. He was started on GDMT with spironolactone, Jardiance, Coreg. He is already on lisinopril, and was advised to speak with his facilities administrator about switching this to Entresto in the outpatient setting. Lower back painlikely strain from lifting heavy boxes recently. Improved with 2 doses of Flexeril, as well as Tylenol. Hypertensioncontinue lisinopril. HPI History of Present Illness: Per PA student Sacha Mathis: Alok Plunkett is a 74 year-old male with PMH of HTN, colon and lung cancer with left lobectomy, and illiac stent for pvd. Patient presents to ED for dyspnea on exertion and back pain. Patient states his dyspnea started 4 days ago when he was moving around boxes in his trailer. He picked up a 25lb box and was walking with it when he felt severely out of breath, he put the box down and attempted to catch his breath. He reports it took him 5-10 minutes to catch his breath to where he felt back to normal. He states that he's noted increasing dyspnea over the past few weeks. He has a significant tobacco use history; no longer using tobacco. PFTs from 2016 were reviewed - even at that time, emphysema was noted even at that time. He also had lung cancer with a lobectomy over 8 years ago. Has been stable since. Patient has not seen a pediatric physical therapist since. He has not been on any inhalers. He has noted a steady decline in his respiratory status. He denies any paroxysmal nocturnal dyspnea. However, he does sleep with the head of his bed slightly elevated. He denies any chest pain. He experiences episodic chest tightness, but has not experienced it currently. He does have a cough that is worse than his normal cough. He has had increased sputum production. The sputum quantity has not changed. He denies any fevers or chills. CONSULTS | PROCEDURES Procedures: Chest x-ray, CTA, abdomen/pelvis CT, lumbar spine CT, echocardiogram HOSPITAL COURSE Hospital Course: Patient is a 74-year-old male with a history of lung cancer with left lobectomy, emphysema who presented with worsening dyspnea as well as lower back pain. For his dyspnea, initially was thought to be progression of his emphysema. However, he had some fluid overload noted on his CTA, and his proBNP was elevated. Echo was completed which showed new onset congestive heart failure with EF of 35 to 40%. Discussed with the patient these findingsshe will need close follow-up with primary care provider, as well as a cardiology referral for ischemic workup. He has not had this in the past. He was started on GDMT with spironolactone, Jardiance, Coreg. He is already on lisinopril, and was advised to speak with his facilities administrator about switching this to Entresto in the outpatient setting. His back pain improved with 2 doses of a muscle relaxant, as well as Tylenol. Likely sprain due to his recent increased activity and heavy lifting. Overall, patient was deemed suitable for discharge back home with close follow- up with his primary care provider and further follow-up with cardiology. ALLERGIES Allergies Allergy/AdvReac Type Severity Reaction Status Date / Time No Known Drug Allergies Allergy Verified 02/28/23 09:44 MEDICATIONS Ambulatory Orders Medication Instructions Recorded Confirmed omeprazole 20 mg capsule,delayed 20 mg PO DAILY 01/27/25 release cyanocobalamin (vitamin B-12) 500 500 mcg PO DAILY 11/1401/27/25 mcg tablet (B-12 DOTS) folic acid 1 mg tablet 1 mg PO DAILY 01/27/2501/27 lisinopril 20 mg tablet 20 mg PO QPM 01/27/25 vit C 250 mg-vit E 90 mg-zinc 40 1 tab PO BID 01/27/25 01/27/25 mg-copper 1 [id number] capsule ([facility] AREDS-2) carvedilol 3.125 mg tablet 3.125 mg PO BID #60 tabs empagliflozin 10 mg tablet 10 mg PO DAILY #30 tabs 12/15 (Jardiance) spironolactone 25 mg tablet 25 mg PO DAILY #30 tabs PHYSICAL EXAM AT DISCHARGE Vital Signs: Vital Signs x48h Temp Pulse Resp BP Pulse Ox 01/28/25 11:15 97.9 F 80 16 138/76 H 94 01/28/25 07:51 97.7 F 88 16 136/72 H 94 General Appearance: positive No acute distress and Alert; negative Anxious Eyes Bilateral: positive Normal inspection, PERRL and EOMI ENT: positive ENT inspection nml, Pharynx nml and No signs of dehydration Neck: positive Nml inspection, Thyroid nml and No JVD Respiratory: positive Chest non-tender, No respiratory distress and Breath sounds nml; negative Wheezes, Rales or Rhonchi Cardiovascular: positive Regular rate & rhythm, No murmur and No gallop; negative Tachycardia or Systolic murmur Abdomen: positive Non-tender, No organomegaly and No distention; negative Guarding or Splenomegaly Back: positive Nml inspection; negative CVA tenderness (R) or CVA tenderness (L) Skin: positive Color nml, No rash, Warm and Dry Extremities: positive Non-tender, Full ROM, Nml appearance and No pedal edema Neurologic/Psychiatric: positive Oriented x3, Motor nml and Mood/affect nml LABS 01/27/25 07:49 01/27/25 07:49 FOLLOW UP Follow Up: Follow up with PCP. Follow up with cardiology. TIME SPENT Time Spent in Discharge (Minutes): 35 Discharge Plan Discharge Patient Disposition: 01 Home, Self Care Condition: Stable Prescriptions: New carvedilol 3.125 mg Tablet 3.125 mg PO BID Qty: 60 0RF Jardiance 10 mg Tablet 10 mg PO DAILY Qty: 30 0RF spironolactone 25 mg Tablet 25 mg PO DAILY Qty: 30 0RF Continued omeprazole 20 MG capsule,delayed release(DR/EC) 20 mg PO DAILY lisinopril 20 mg tablet 20 mg PO QPM folic acid 1 mg tablet 1 mg PO DAILY Patient Comments: take 1 tablet by mouth once daily [facility] AREDS-2 250-90-40-1 mg capsule 1 tab PO BID cyanocobalamin (vitamin B-12) [B-12 DOTS] 500 mcg tablet 500 mcg PO DAILY Diet: Cardiac Health Concerns: You came in with shortness of breath. Your imaging showed that you had a little bit of fluid on your lungs, and one of your blood tests, called a proBNP was elevated. As such, we were concerned for heart failure. We did an ECHO, or an ultrasound of your heart, which revealed heart failure with reduced ejection fraction. Basically, this means that your heart is not pumping as effectively as it should. We talked about what this would mean for you. Primarily, it is very important that you follow-up with your primary care provider who will give you a referral for facilities administrator. They will likely do a workup to make sure that there are no blockages in your heart. In the meantime, we will start you on medical therapy for heart failure with the following 4 medications: 1) YOLY inhibitors (your lisinopril) These lower blood pressure by acting on the kidneys and ease strain on the heart. This makes it easier for the heart to pump. These medicines also help remodel the heart, which can help your heart pump better. This will likely be changed by your facilities administrator to an Angiotensin receptor neprilysin inhibitor (ARNI). This medicine combines an ARB and a neprilysin inhibitor. It helps relax blood vessels and reduce stress on the heart. It also helps your body get rid of salt and fluid. 2) Beta-blockers (the Coreg). These medicines help lower blood pressure and slow your heart rate. This eases the work on your heart. Beta-blockers may improve the heart's pumping action and strength over time. If you have severe lung disease, you may not be able to take these medicines. 3) Sodium-glucose cotransporter-2 (SGLT2) inhibitors (Jardiance). These treat heart failure in people who have reduced ejection fraction. They ease the strain on the heart by blocking the kidneys from reabsorbing sugar from the blood. This helps your body get rid of extra salt and water. So it lowers your blood pressure. These medicines were originally made to help manage diabetes. 4) Aldosterone blockers (spirnolactone). These help change hormone levels to help your body get rid of salt and water through the kidneys and ease strain on the heart. I understand that this is a lot of information, and it can feel overwhelming. Please continue to work on a low-salt diet. The most important thing will be to follow-up with your primary care provider for this facilities administrator referral. We are glad you are feeling better, thank you for letting us take care of you. Print Language: Persian Patient Instructions: Heart Failure Meds, Cardiomyopathy Dc, Heart Failure Dc Follow-up Care: BORA OSULLIVAN MD [Primary Care Provider, Family Practice] Vitals documented within 30 minutes of discharge?: Yes"
[2025-01-28] MEDS: BACLOFEN 10 MG TABLET PO ONE (10:31)
[2025-01-28] MEDS: EMPAGLIFLOZIN 10 MG TABLET PO SCH (10:31)
[2025-01-28 11:28] VITALS: BP 138/76; TEMP 97.9
== END 2025-01-28 11:28 | disposition home or self-care (01) ==
LOC: ED 07:08 → MS3 07:08
PROVIDERS: ADMIT Internal Medicine; ATTEND Internal Medicine
DX: Z90.2 Acquired absence of lung [part of]; I11.0 Hypertensive heart disease with heart failure; J44.9 Chronic obstructive pulmonary disease, unspecified; I50.22 Chronic systolic (congestive) heart failure; Z87.891 Personal history of nicotine dependence; J43.9 Emphysema, unspecified; Z85.038 Personal history of other malignant neoplasm of large intestine; Z85.118 Personal history of other malignant neoplasm of bronchus and lung; I73.9 Peripheral vascular disease, unspecified; J96.01 Acute respiratory failure with hypoxia; Z95.820 Peripheral vascular angioplasty status with implants and grafts; M54.50 Low back pain, unspecified